=== PATIENT | male | born 1990 | race Caucasian/White ===

== ENCOUNTER 2022-10-10 14:22 | Emergency (ER) | payer BC, SELFPAY ==
[2022-10-10] VITALS (16 sets, daily range): BP systolic 126–158; BP diastolic 81–98; PULSE 75–94; RESP 18; TEMP 36.5; O2SAT 98–100; BMI 23.7
--- NOTE | 2022-10-10 14:41 | ED.SOB ---
HPI - SOB/Dyspnea General Time Seen by Provider: 14:41 Date Seen: 10/10/22 Chief Complaint: Shortness of Breath/Dyspnea Stated Complaint: Chest pain, had aspirin prior to coming in Time Seen by Provider: 10/10/22 14:40 Source: patient and RN notes reviewed Mode of arrival: ambulatory Limitations: no limitations History of Present Illness HPI Narrative: Patient is a 32-year-old male coming into the ER accompanied by his dad with concern of chest symptoms. When he was driving home earlier today around 10 in the morning, had a fluttery feeling in his upper chest lower throat. Did not ever really have chest pain with it per se but just felt funny. He is not sure how long this lasted. It did have some occasional brief like 2nd episodes after that. States he just did not feel right. He felt a little short of breath with this. Denies any recent cough or cold symptoms. He last had COVID last year. No fevers or chills. No pain in his chest now. He is not feeling the fluttering right now. While I am talking to him a visualize the monitor and he is in sinus rhythm without any ectopy. There is a paternal grandfather who had a CABG around age 65 but everyone else in the family has been without any symptoms. Chepe has never had any cardiopulmonary diagnosis, no asthma, no chronic conditions. He does not smoke. He did drink some alcohol at a friend's house last night and does drink socially. He himself has never had a diagnosis of any thromboembolic disease. When patient's question what he is worried about, he states he does not want to be having a heart attack. He tears up a little bit when he tells me this. IA reassured him that we will certainly look at his heart, I am hopeful that this does not represent any ischemic heart disease. I have tried to reassure him at this point. MD elicited complaint: shortness of breath Related Data Home oxygen amount: none Home Medications Medication Instructions Recorded Confirmed No Known Home Medications 10/10/22 10/10/22 Allergies Allergy/AdvReac Type Severity Reaction Status Date / Time No Known Drug Allergies Allergy Verified 10/10/22 15:02 Review of Systems Status of ROS: Reports: 10 or more systems reviewed and unremarkable except as noted in History and below PFSH PFSH Social History (System 10/10/22 @ 15:02 by Iqra Bhandari) Smoking Status: Never smoker Do you use any of these nicotine containing products: None How often do you have a drink containing alcohol: 2-4 times a month AUDIT-C Alcohol total score: 2 Non-prescribed substance use: denies use Exam Const: Vital Signs, click to edit/add: Vital Signs - 24 hr 10/10/22 14:25 10/10/22 14:52 10/10/22 14:40 Temperature 97.7 F Pulse Rate 77 Pulse Rate [Right Pulse Oximeter] 92 Respiratory Rate 18 Blood Pressure Blood Pressure [Ri ght Upper Arm] 158/98 H Pulse Oximetry 99 98 99 Oxygen Delivery Me thod Room Air 10/10/22 14:45 10/10/22 15:01 10/10/22 15:02 Temperature Pulse Rate 80 94 82 Pulse Rate [Right Pulse Oximeter] Respiratory Rate Blood Pressure 135/89 Blood Pressure [Ri ght Upper Arm] Pulse Oximetry 100 100 100 Oxygen Delivery Me thod 10/10/22 15:15 10/10/22 15:30 10/10/22 15:31 Temperature Pulse Rate 85 90 82 Pulse Rate [Right Pulse Oximeter] Respiratory Rate Blood Pressure 126/81 Blood Pressure [Ri ght Upper Arm] Pulse Oximetry 99 98 100 Oxygen Delivery Me thod 10/10/22 15:45 10/10/22 16:00 Temperature Pulse Rate 81 78 Pulse Rate [Right Pulse Oximeter] Respiratory Rate Blood Pressure Blood Pressure [Ri ght Upper Arm] Pulse Oximetry 100 100 Oxygen Delivery Me thod Documenting provider has reviewed patient's vital signs: yes Common normals: no apparent distress, average body habitus, oriented x3, no limitations, healthy appearing, alert and well nourished General appearance: cooperative, comfortable, well kempt, well developed and anxious HENMT: Common normals: normocephalic, head/scalp atraumatic, hearing grossly normal bilaterally, external nose normal, nasal mucous membranes and turbinates normal, moist oral mucous membranes and oropharynx normal Head and scalp: normocephalic and atraumatic Nose: external nose normal and nasal mucous membranes and turbinates normal Eye: Common normals: PERRL, EOMs intact bilaterally, conjunctivae normal and no scleral icterus Conjunctiva: conjunctiva(e) normal Pupil: PERRL Neck & C-Spine: Common normals: full ROM, no lymphadenopathy, supple, no meningeal signs, no JVD and thyroid normal Thyroid: thyroid normal Chest: Common normals: inspection of chest normal and palpation of chest normal Resp: Common normals: normal respiratory effort, no retractions, no use of accessory muscles and clear to auscultation bilaterally Auscultation: clear to auscultation bilaterally Cardio: Common normals: no JVD, regular rate, regular rhythm, S1 normal heart sound, S2 normal heart sound, no gallops, no clicks and no murmurs Rate: regular rate Rhythm: regular rhythm Heart sounds: S1 normal and S2 normal GI: Common normals: Normal to inspection, nondistended, normoactive bowel sounds present, soft to palpation, non-tender, no hepatosplenomegaly and no masses Palpation: soft and no hepatosplenomegaly Extremity: Common normals: no calf tenderness and no pedal edema Neuro: Common normals: oriented x3 Sensorium/orientation: alert Meningeal signs: no meningeal signs Psych: Appearance: well kempt Course Course Hospital Course: Patient will be maintained on cardiac monitoring and pulse oximetry here. Will look for ectopy such as PACs or PVCs, any arrhythmia. I doubt that this represents ischemic heart disease but we will obviously be getting a troponin. Will get a full complement of labs including D-dimer. Will start with a portable chest x-ray. With patient drinking last night, do wonder if he maybe was having some PACs or PVCs that we are not seen now. Will look at his electrolytes make sure that there isn't any deficiency. Patient is alerted to let us know if he is feeling the fluttering coming back and we can see if anything is corresponding on the cardiac monitoring. Doubtful that this represents any infectious etiology or GI pathology. Patient's symptoms obviously had made him feel anxious. Patient understands that if his D-dimer does come back elevated, would pursue chest CT PE protocol to rule out venous thromboembolic disease. Reevaluation(s) Reevaluation #1: Reviewed normal labs outside of the AST and ALT elevation to this point. Did review that we will do a 2nd troponin to ensure no changes. Patient's liver enzyme elevation is in an alcohol pattern. Patient admits he probably drinks more than he should. We did discuss alcohol use, alcohol use disorder as well as my opinion that I frequently see patients with anxiety after drinking. We have not seen any arrhythmia, no ectopic burden well monitored here. Time: 15:55 Reevaluation #2: Reviewed 2nd normal heart enzyme. Patient has had no recurrent sense of palpitations or fluttering while here. We have see nothing on monitoring. Time: 16:39 Vital Signs Vital signs: Initial Vital Signs Temperature 97.7 F 10/10/22 14:25 Temperature Source Temporal Artery Scan 10/10/22 14:25 Pulse Rate 92 10/10/22 14:25 Respiratory Rate 18 10/10/22 14:25 Blood Pressure 158/98 H 10/10/22 14:25 Blood Pressure Mean 118 10/10/22 14:25 Blood Pressure Position Sitting 10/10/22 14:25 Pulse Oximetry 99 10/10/22 14:25 Oxygen Delivery Method Room Air 10/10/22 14:25 Vital Signs Temperature 97.7 F 10/10/22 14:25 Pulse Rate 92 10/10/22 14:25 Respiratory Rate 18 10/10/22 14:25 Blood Pressure 158/98 H 10/10/22 14:25 Pulse Oximetry 99 10/10/22 14:25 Oxygen Delivery Method Room Air 10/10/22 14:25 Temperature 97.7 F 10/10/22 14:25 Pulse Rate 78 10/10/22 16:00 Respiratory Rate 18 10/10/22 14:25 Blood Pressure 126/81 10/10/22 15:31 Pulse Oximetry 100 10/10/22 16:00 Oxygen Delivery Method Room Air 10/10/22 14:25 MDM - SOB/Dyspnea Lab Data Attestation: I reviewed the patient's lab results. Labs: Lab Results 10/10/22 10/10/22 Range/Units 14:32 16:30 WBC 10.12 (4.50-11.00) K/uL RBC 4.85 (4.30-5.90) m/uL Hgb 15.8 (13.5-17.5) gm/dL Hct 46.3 (37.0-53.0) % MCV 96 (80-100) fL MCH 33 (26-34) pg MCHC 34 (32-36) gm/dL RDW Coeff of Tito 12.0 (11.5-15.5) % Plt Count 226 (140-440) K/uL Neut % (Auto) 72.8 H (42.0-72.0) % Lymph % (Auto) 18.9 L (20-44) % Gilliam % (Auto) 6.7 (0.0-11.0) % Eos % (Auto) 0.6 (0.0-7.0) % Baso % (Auto) 0.3 (0.0-3.0) % Neut # (Auto) 7.40 H (1.7-7.0) K/uL Lymph # (Auto) 1.90 (0.90-2.90) K/uL Gilliam # (Auto) 0.70 (0.00-0.90) K/UL Eos # (Auto) 0.06 (0.00-0.50) K/uL Baso # (Auto) 0.03 (0.00-0.30) K/uL D-Dimer Quant (PE/DVT) < 0.27 (0.00-0.50) ug/ml VBG pH 7.417 (7.32-7.43) VBG pCO2 40 (40-50) mmHG VBG pO2 37.1 (25-47) mmHG VBG HCO3 26 (21-28) mmol/L Sodium 138 (135-149) mmol/L Potassium 3.9 (3.6-5.1) mmol/L Chloride 102 (96-114) mmol/L Carbon Dioxide 23 (20-32) mmol/L BUN 6 (5-24) mg/dL Creatinine 0.8 (0.5-1.5) mg/dL Estimated Creat Clear 142.81 Estimated GFR 119 ml/min Glucose 97 (60-115) mg/dL Calcium 9.5 (8.4-10.6) mg/dL Magnesium 2.0 (1.5-2.6) mg/dL Total Bilirubin 0.6 (0.1-1.5) mg/dL AST 144 H (12-35) U/L ALT 80 H (4-50) U/L Alkaline Phosphatase 83 (40-150) U/L C-Reactive Protein < 0.5 L (0.5-1.0) mg/dL NT-Pro-B Natriuret Pep < 20 pg/mL Total Protein 8.6 H (6.0-8.3) g/dL Albumin 5.2 H (3.3-5.0) g/dL POC Troponin I 0.01 0.00 L (0.01-0.04) ng/ml Imaging Data Chest x-ray: My impression: No acute pathology on my preliminary review, await Radiology over-read. ECG Data Attestation: I personally reviewed and interpreted this ECG as follows: (Sinus rhythm, 85 beats per minute. Low voltage in aVL. Otherwise no acute ischemic change noted. QT corrected 452 milliseconds.) ECG interpretation date: 10/10/22 ECG interpretation time: 14:41 Critical Care Time Critical Care Time Critical Care Time: No Discharge Plan Discharge Clinical Impression: Fluttering sensation of heart, Elevated liver transaminase level Patient Disposition: Home, Self-Care Condition: Stable Instructions: Heart Palpitations (ED) Additional Instructions: Drink plenty of fluids today. Try to minimize alcohol intake. Your AST and ALT which are liver transaminase levels were elevated in an alcoholic pattern when checked here in the ER today. Do recommend minimizing alcohol intake. Should have your liver enzymes rechecked within the next 1-2 months, follow up in clinic to have this done. If you have any ongoing sense of irregular heartbeats or heart fluttering, would recommend follow up in clinic and have a Holter or ZIO patch monitor done. If you have any acute concerns of heart rhythms, difficulty breathing, shortness of breath or chest pain, it is always recommended that you seek evaluation in an emergency room. Activity Level: Activity as Tolerated Discharge Diet: Regular Prescriptions: No Action No Known Home Medications Stand Alone Forms: [employer] Info Instructions
--- NOTE | 2022-10-10 14:52 | CRLHL7_ITS ---
For Patients: As a result of the Cures Act, medical imaging exams and procedure reports are released immediately into your electronic medical record. You may view this report before your referring provider. If you have questions, please contact your health care provider. INDICATION: Shortness of breath. TECHNIQUE: Chest 1 view. COMPARISON: None. FINDINGS: The cardiomediastinal silhouette size is normal. There is no focal pulmonary opacity, pleural effusion or pneumothorax. The visualized osseous structures are unremarkable for age. Impression: No acute cardiopulmonary abnormality. Dictated by Mavis Fisher MD @ 10/10/2022 5:15:01 PM (Electronically Signed)
[2022-10-10 14:58] LABS: Troponin, Point-of-Care* 0.01 ng/ml (0.01-0.04)
[2022-10-10 15:01] LABS: Basophils Absolute Auto 0.03 K/uL (0.00-0.30); Basophils Percent Auto 0.3 % (0.0-3.0); Eosinophils Absolute Auto 0.06 K/uL (0.00-0.50); Eosinophils Percent Auto 0.6 % (0.0-7.0); Hematocrit 46.3 % (37.0-53.0); Hemoglobin* 15.8 gm/dL (13.5-17.5); Immature Granulocytes Abs Auto 0.07 K/uL (0.00-0.30); Immature Granulocytes Pct Auto 0.7 %; Lymphocytes Percent Auto 18.9 % (20-44); Mean Corpuscular HGB Conc 34 gm/dL (32-36); Mean Corpuscular Hemoglobin 33 pg (26-34); Mean Corpuscular Volume 96 fL (80-100); Monocytes Percent Auto 6.7 % (0.0-11.0); Neutrophils Percent Auto 72.8 % (42.0-72.0); Platelet Count* 226 K/uL (140-440); Red Blood Count 4.85 m/uL (4.30-5.90); White Blood Count* 10.12 K/uL (4.50-11.00)
[2022-10-10 15:09] LABS: Albumin* 5.2 g/dL (3.3-5.0); Chloride* 102 mmol/L (96-114); Potassium* 3.9 mmol/L (3.6-5.1); Sodium* 138 mmol/L (135-149)
[2022-10-10 15:11] LABS: Slide Review Reflex No
[2022-10-10 15:12] LABS: Alkaline Phosphatase* 83 U/L (40-150); Aspartate Amino Transferase* 144 U/L (12-35); Bilirubin Total* 0.6 mg/dL (0.1-1.5); Blood Urea Nitrogen* 6 mg/dL (5-24); Carbon Dioxide* 23 mmol/L (20-32); Creatinine* 0.8 mg/dL (0.5-1.5); Est. Creatinine Clearance* 142.81; Estimated Glomerular Filt Rate 119 ml/min; HCO3 VBG 26 mmol/L (21-28); PCO2 VBG 40 mmHG (40-50); PO2 VBG 37.1 mmHG (25-47); Total Protein* 8.6 g/dL (6.0-8.3); pH VBG 7.417 (7.32-7.43)
[2022-10-10 15:13] LABS: Alanine Aminotransferase* 80 U/L (4-50); Calcium* 9.5 mg/dL (8.4-10.6); Glucose* 97 mg/dL (60-115)
[2022-10-10 15:23] LABS: C Reactive Protein* < 0.5 mg/dL (0.5-1.0); NT Pro B Type NatriureticPept* < 20 pg/mL
[2022-10-10 15:25] LABS: D Dimer Quantitative* < 0.27 ug/ml (0.00-0.50)
== END 2022-10-10 16:59 | disposition home or self-care (01) ==
PROVIDERS: Emergency Provider Family Medicine
DX: R00.2 Palpitations (principal); R74.01 Elevation of levels of liver transaminase levels
CPT/HCPCS: 36415; 71045; 80053; 82803; 83735; 83880; 84484; 85025; 85379; 86140; 93005; 94761; 99284; 99285

== ENCOUNTER 2024-01-11 08:20 | Outpatient (CLI) | payer BC, SELFPAY | END 2024-01-11 08:21 | disposition home or self-care (01) | LOC: NFLDREF 01-13 10:02 | PROVIDERS: PCP Family Medicine; Referring Provider Family Medicine; Visit Provider Family Medicine | DX: Z00.00 Encounter for general adult medical examination without abnormal findings (principal); R79.89 Other specified abnormal findings of blood chemistry; E78.00 Pure hypercholesterolemia, unspecified; R55 Syncope and collapse | CPT/HCPCS: 80061; 80076 ==